=== PATIENT | male | born 1960 | race Caucasian/White ===

== ENCOUNTER → 2018-03-17 | Outpatient (CLI) | payer OTHER ==
[2018-03-17] VITALS (16 sets, daily range): BP systolic 117–168; BP diastolic 86–103
[~2018-03-17] MED LIST: AMITRIPTYLINE H10 M3 PO; ASPIR 8181 MG PO; CLOMIPHENE CITR50 MG PO; EFFEXOR XR37.5 MG PO; FENOFIBRATE160 MG PO; FISH OIL 1,001000 M2 PO; LIPITOR 20 MG T20 M1 PO; LOPRESSOR25 PO; MULTI VITAMIN1 EACH PO; OMEPRAZOLE 20 M20 M1 PO; POTASSIUM CHLO10 ME1 PO; REGLAN 10 MG TA10 MG PO; SUPER B COMPLE150 MG PO; TOPAMAX 25 MG T25 M1 PO; VITAMIN D2000 UNIT PO
--- NOTE | 2018-03-18 09:14 | CARD ---
[address] [address] CARDIAC CATH REPORT Name: ANTONI YUAN Room: [facility]#: [id number] Admission: 03/17/18 Attend Phys: Oleg Martines MD Discharge: Date of : 60 Report #: [id number] THIS REPORT FOR: //name// CC: ANGIE Martines DATE OF SERVICE: 03/17/2018 PROCEDURE: Upright Tilt Table Test INDICATION: Presyncope. CONSENT: The risks and benefits of the procedure described to patient in lay terms. The patient elects to proceed. DETAILS OF PROCEDURE: The patient's initial ECG demonstrated a sinus rhythm with heart rate of 76 and his blood pressure was 140/93 with respiratory rate of 18, O2 sat was 95%. The patient was then tilted and at that time, he had a stable blood pressure 154/93 with heart rate of 86, still remaining in a sinus rhythm. It is noted that he was tilted to 70 degrees. Per protocol, his heart rate and oxygenation and blood pressure were monitored at 5 minute intervals. During this entire study, he remained in a sinus rhythm with stable blood pressures. Maximum blood pressure was 165/96 with a pulse of 83. His only complaints during the study was throbbing headache. He did not lose consciousness. With initiation of nitroglycerin, the patient did not lose consciousness. The study was concluded and he was remained and monitored in stable sinus rhythm with only complaints of mild headache, which resolved after IV fluids. IMPRESSION: Negative upright tilt table test for neurocardiogenic syncope. <ELECTRONICALLY SIGNED> By: Oleg Martines MD, FACC 03/18/18 0914 [id number] Martines MD, FACC /nt
== END | disposition home or self-care (01) ==
LOC: M.CL 09:02
DX: R55 Syncope and collapse (principal); Z88.8 Allergy status to other drugs, medicaments and biological substances; Z79.82 Long term (current) use of aspirin; Z79.899 Other long term (current) drug therapy